=== PATIENT | male | born 1950 | race African-American/Black ===

== ENCOUNTER 2020-05-17 13:41 | Emergency (ER) | payer MEDICARE ==
[~2020-05-17] VITALS: Ht 188 cm; Wt 120.0 kg
[2020-05-17] MEDS ORDERED: ASPIRIN 325 MG TABLET PO ONE (14:15)
[2020-05-17 14:22] LABS: BASO % 1 % (0-3); EOS # 0.1 x10^3/uL (0.0-0.7); EOS % 3 % (0-3); HEMATOCRIT 38.3 % (39.0-53.0); HEMOGLOBIN 12.6 g/dL (13.0-17.5); LYMPH # 0.6 x10^3/uL (1.0-4.8); LYMPH % 21 % (24-48); MEAN CORPUSCULAR HEMOGLOBIN 27 pg (25-35); MEAN CORPUSCULAR HGB CONC 33 g/dL (31-37); MEAN CORPUSCULAR VOLUME 80 fL (79-100); MONO # 0.2 x10^3/uL (0.0-1.1); MONO % 8 % (0-9); NEUT % 67 % (31-73); PLATELET COUNT 217 x10^3/uL (140-400); RED BLOOD COUNT 4.76 x10^6/uL (4.30-5.70); RED CELL DISTRIBUTION WIDTH 14.9 % (11.5-14.5)
[2020-05-17 14:30] LABS: CALCIUM 8.7 mg/dL (8.5-10.1); CREATININE 1.6 mg/dL (0.7-1.3); GFR 43.1; POTASSIUM 3.4 mmol/L (3.5-5.1)
[2020-05-17 14:35] LABS: PROTHROMBIN TIME PATIENT 13.4 SEC (11.7-14.0)
[2020-05-17 14:37] LABS: ALBUMIN 3.2 g/dL (3.4-5.0); ALBUMIN/GLOBULIN RATIO 0.9 (1.0-1.7); MAGNESIUM 1.8 mg/dL (1.8-2.4); TOTAL BILIRUBIN 0.5 mg/dL (0.2-1.0); TOTAL PROTEIN 6.6 g/dL (6.4-8.2)
--- NOTE | 2020-05-17 14:41 | RAD ---
EXAM: Chest, single view. HISTORY: Chest pain. COMPARISON: None. FINDINGS: A frontal view of the chest is obtained. There is diffuse increased interstitial opacity. No consolidation, pleural effusion or pneumothorax is seen. There is a prominent cardiac silhouette, a component of which is likely accentuated due to portable technique. There are findings consistent with CABG. There is a suspected calcified granuloma within the right upper lobe. There is benign sclerosis within the right humeral head. IMPRESSION: Diffuse increased interstitial opacity without consolidation. Electronically signed by: Melissa Bonds MD (05/17/2020 2:38 PM) [facility]
--- NOTE | 2020-05-17 14:50 | RAD ---
EXAM: Head CT without contrast. HISTORY: Dizziness. TECHNIQUE: Computed tomographic images of the head were obtained without contrast. *One or more of the following individualized dose reduction techniques were utilized for this examination: 1. Automated exposure control. 2. Adjustment of the mA and/or kV according to patient size. 3. Use of iterative reconstruction technique. COMPARISON: None. FINDINGS: There is no acute or subacute extra-axial or intraparenchymal hemorrhage. There is no mass effect or midline shift. There is no hydrocephalus. There is decreased attenuation within the left frontal lobe likely due to encephalomalacia from chronic infarction. This is superimposed on extensive scattered areas of hypodensity within the cerebral white matter likely due to chronic small vessel disease. There is a suspected small arachnoid cyst within the midline posterior fossa. This is of no clinical significance. The visualized portions of the orbits, paranasal sinuses and mastoid air cells are unremarkable. No suspicious calvarial lesion is seen. IMPRESSION: 1. No acute intracranial finding. Note is made that MRI is more sensitive for acute infarction. 2. Evidence of malacia likely due to chronic infarction within the left frontal lobe. 3. Bilateral cerebral white changes, most commonly due to chronic small vessel disease in patients of this age. Electronically signed by: Melissa Bonds MD (05/17/2020 2:47 PM) [facility]
[2020-05-17 16:17] VITALS: BP 206/78
--- NOTE | 2020-05-17 16:20 | PHYS DOC ---
Past Medical History Past Medical History: Anxiety, CAD, CVA, High Cholesterol, Hypertension (DENIS HARVEY APRN) Past Surgical History: Coronary Bypass Surgery (DENIS HARVEY APRN) Smoking Status: Never Smoker Alcohol Use: None (DENIS HARVEY APRN) General Adult EDM: Chief Complaint: DIZZY/LIGHT HEADED HPI: HPI: Patient is a 69 year old AA male, accompanied by his , who presents to the emergency department with complaints of feeling lightheaded today. He denies any increase in symptoms with movement, ringing in his ears, or sensation of the room spinning. reports that the patient has had 2 CVAs this year and he has aphasia following his strokes. HPI is limited due to patient aphasia. The patient currently denies any pain (DENIS HARVEY APRN) Review of Systems: Review of Systems: Constitutional: Denies fever or chills. [] Eyes: Denies change in visual acuity. [] HENT: Denies nasal congestion or sore throat. [] Respiratory: Denies cough or shortness of breath. [] Cardiovascular: Denies chest pain GI: Denies abdominal pain, nausea, vomiting, or diarrhea. [] Musculoskeletal: Denies back pain or joint pain. [] Integument: Denies rash. [] Neurologic: Denies headache, see HPI Psychiatric: Denies depression or anxiety. [] (DENIS HARVEY APRN) Heart Score: Risk Factors: Risk Factors: DM, Current or recent (<one month) smoker, HTN, HLP, family history of CAD, obesity. Risk Scores: Score 0 - 3: 2.5% MACE over next 6 weeks - Discharge Home Score 4 - 6: 20.3% MACE over next 6 weeks - Admit for Clinical Observation Score 7 - 10: 72.7% MACE over next 6 weeks - Early Invasive Strategies (DENIS HARVEY APRN) Current Medications: Current Medications Medications (Trade) Dose Ordered Sig/Kathleen Start Time Stop Time Status Last Admin Dose Admin Aspirin (Aundrea Aspirin) 325 mg 1X ONCE 05/17/20 14:15 05/17/20 14:54 DC 05/17/20 15:22 325 MG (DENIS HARVEY ENGINEERING INTERN) Allergies: Allergies: Allergies Coded Allergies Type Severity Reaction Last Updated Verified No Known Drug Allergies 05/17/20 No (DENIS HARVEY APRN) Physical Exam: PE: Constitutional: Well developed, well nourished, no acute distress, non-toxic appearance. [] HENT: Normocephalic, atraumatic, bilateral external ears normal, oropharynx moist, no oral exudates, nose normal. [] Eyes: PERRLA, EOMI, conjunctiva normal, no discharge. [] Neck: Normal range of motion, no stridor. [] Cardiovascular:Heart rate regular rhythm Lungs & Thorax: Bilateral breath sounds clear to auscultation, Respirations even and unlabored, no retractions, no respiratory distress[] Abdomen: soft, no tenderness, no masses, no pulsatile masses. [] Skin: Warm, dry, no erythema, no rash. [] Back: No tenderness, no CVA tenderness. [] Extremities: No cyanosis, ROM intact, no edema. [] Neurologic: Alert and oriented X 3, normal motor function, strength 5/5 upper and lower extremities, normal sensory function, no focal deficits noted, aphasia present. [] Psychologic: Affect normal, judgement normal, mood normal. [] (DENIS HARVEY APRN) Current Patient Data: Labs: Laboratory Tests Test 05/17/20 14:11 White Blood Count 3.0 x10^3/uL (4.0-11.0) L Red Blood Count 4.76 x10^6/uL (4.30-5.70) Hemoglobin 12.6 g/dL (13.0-17.5) L Hematocrit 38.3 % (39.0-53.0) L Mean Corpuscular Volume 80 fL (79-100) Mean Corpuscular Hemoglobin 27 pg (25-35) Mean Corpuscular Hemoglobin Concent 33 g/dL (31-37) Red Cell Distribution Width 14.9 % (11.5-14.5) H Platelet Count 217 x10^3/uL (140-400) Neutrophils (%) (Auto) 67 % (31-73) Lymphocytes (%) (Auto) 21 % (24-48) L Monocytes (%) (Auto) 8 % (0-9) Eosinophils (%) (Auto) 3 % (0-3) Basophils (%) (Auto) 1 % (0-3) Neutrophils # (Auto) 2.0 x10^3/uL (1.8-7.7) Lymphocytes # (Auto) 0.6 x10^3/uL (1.0-4.8) L Monocytes # (Auto) 0.2 x10^3/uL (0.0-1.1) Eosinophils # (Auto) 0.1 x10^3/uL (0.0-0.7) Basophils # (Auto) 0.0 x10^3/uL (0.0-0.2) Prothrombin Time 13.4 SEC (11.7-14.0) Prothrombin Time INR 1.1 (0.8-1.1) Activated Partial Thromboplast Time 32 SEC (24-38) Sodium Level 145 mmol/L (136-145) Potassium Level 3.4 mmol/L (3.5-5.1) L Chloride Level 109 mmol/L (98-107) H Carbon Dioxide Level 25 mmol/L (21-32) Anion Gap 11 (6-14) Blood Urea Nitrogen 18 mg/dL (8-26) Creatinine 1.6 mg/dL (0.7-1.3) H Estimated GFR (Cockcroft-Gault) 43.1 BUN/Creatinine Ratio 11 (6-20) Glucose Level 183 mg/dL (70-99) H Calcium Level 8.7 mg/dL (8.5-10.1) Magnesium Level 1.8 mg/dL (1.8-2.4) Total Bilirubin 0.5 mg/dL (0.2-1.0) Aspartate Amino Transferase (AST) 18 U/L (15-37) Alanine Aminotransferase (ALT) 22 U/L (16-63) Alkaline Phosphatase 75 U/L (46-116) Creatine Kinase 465 U/L (39-308) H Creatine Kinase MB (Mass) 4.9 ng/mL (0.0-3.6) H Creatine Kinase MB Relative Index 1.1 % (0-4) Troponin I Quantitative 0.079 ng/mL (0.000-0.055) ZL-Qfk-S-Type Natriuretic Peptide 2032 pg/mL (0-124) H Total Protein 6.6 g/dL (6.4-8.2) Albumin 3.2 g/dL (3.4-5.0) L Albumin/Globulin Ratio 0.9 (1.0-1.7) L Lipase 108 U/L (73-393) Laboratory Tests 05/17/20 14:11 Laboratory Tests 05/17/20 14:11 Vital Signs: Vital Signs Date Time Temp Pulse Resp B/P (MAP) Pulse Ox O2 Delivery O2 Flow Rate FiO2 05/17/20 13:42 98.7 89 18 160/73 (102) 98 Room Air 98.7 (DENIS HARVEY APRN) EKG: EK-sinus rhythm, rate 86, no STEMI, read by Dr. Melton[] (DENIS HARVEY APRN) Radiology/Procedures: Radiology/Procedures: PROCEDURE: CT HEAD WO CONTRAST EXAM: Head CT without contrast. HISTORY: Dizziness. TECHNIQUE: Computed tomographic images of the head were obtained without contrast. *One or more of the following individualized dose reduction techniques were utilized for this examination: 1. Automated exposure control. 2. Adjustment of the mA and/or kV according to patient size. 3. Use of iterative reconstruction technique. COMPARISON: None. FINDINGS: There is no acute or subacute extra-axial or intraparenchymal hemorrhage. There is no mass effect or midline shift. There is no hydrocephalus. There is decreased attenuation within the left frontal lobe likely due to encephalomalacia from chronic infarction. This is superimposed on extensive scattered areas of hypodensity within the cerebral white matter likely due to chronic small vessel disease. There is a suspected small arachnoid cyst within the midline posterior fossa. This is of no clinical significance. The visualized portions of the orbits, paranasal sinuses and mastoid air cells are unremarkable. No suspicious calvarial lesion is seen. IMPRESSION: 1. No acute intracranial finding. Note is made that MRI is more sensitive for acute infarction. 2. Evidence of malacia likely due to chronic infarction within the left frontal lobe. 3. Bilateral cerebral white changes, most commonly due to chronic small vessel disease in patients of this age. Electronically signed by: Melissa Bonds MD (05/17/2020 2:47 PM) [facility][] PROCEDURE: CHEST AP ONLY EXAM: Chest, single view. HISTORY: Chest pain. COMPARISON: None. FINDINGS: A frontal view of the chest is obtained. There is diffuse increased interstitial opacity. No consolidation, pleural effusion or pneumothorax is seen. There is a prominent cardiac silhouette, a component of which is likely accentuated due to portable technique. There are findings consistent with CABG. There is a suspected calcified granuloma within the right upper lobe. There is benign sclerosis within the right humeral head. IMPRESSION: Diffuse increased interstitial opacity without consolidation. (DENIS HARVEY APRN) Course & Med Decision Making: Course & Med Decision Making Pertinent Labs and Imaging studies reviewed. (See chart for details) 69-year-old male who presented to the emergency department with complaints of feeling lightheaded. Work-up included labs, EKG, chest x-ray, and CT head. EKG revealed no acute findings. Chest x-ray revealed diffuse increased interstitial opacity without consolidation. CT head revealed: 1. No acute intracranial finding. Note is made that MRI is more sensitive for acute infarction. 2. Evidence of malacia likely due to chronic infarction within the left frontal lobe. 3. Bilateral cerebral white changes, most commonly due to chronic small vessel disease in patients of this age. CBC revealed a white blood cell count of 3, hemoglobin of 12.6, hematocrit of 38.3; PT/INR within normal limits; CMP revealed a potassium of 3.4, chloride of 109, creatinine 1.6, glucose of 183, CK of 465, CK-MB of 4.9, troponin is 0.079, and BNP of 2032. These results were discussed with the patient and admission to the hospital for elevated troponin and cardiac work-up was recommended. The patient and his refused admission. They were aware of the elevated troponin and the concern of this being related to the patient's heart. They were instructed to return to the hospital if symptoms worsened, chest pain developed, or the patient had difficulty breathing. [] (DENIS HARVEY APRN) Course & Med Decision Making I have personally interviewed and examined patient. All charts, labs and imagi ng studies were reviewed. I agreed with the PA/ORE CRUSHING DUST COLLECTOR's findings, exam and plan of care On my assessment patient is alert and has his baseline expressive aphasia. Patient is in no respiratory distress. I had a lengthy conversation with him about how I recommend admission to the hospital for further evaluation and treatment and serial enzymes. Patient has full mental capacity and does not want to be admitted. Patient wants to go back to [place]. I gave strong return precautions to him and his . (JESSICA MELTON MD) Dragon Disclaimer: Dragon Disclaimer: This electronic medical record was generated, in whole or in part, using a voice recognition dictation system. (DENIS HARVEY APRN) Departure Departure Impression: Primary Impression: Light-headed feeling Additional Impressions: Elevated troponin Left against medical advice Disposition: HOME, SELF-CARE Condition: STABLE Referrals: MELISSA THEODORE (PCP) Patient Instructions: Dizziness, [id number] Additional Instructions: Please return to the emergency room if your symptoms worsen, please follow-up with your primary care doctor in the next 1 to 2 days. Justicifation of Admission Dx: Justifications for Admission: Justification of Admission Dx: N/A (DENIS HARVEY APRN) DENIS HARVEY APRN May 17, 2020 16:20 JESSICA MELTON MD May 17, 2020 17:10
--- NOTE | 2020-05-18 07:45 | EKG ---
[facility] [address] [place] [address] Test Date: 2020-05-17 Test Time: 13:47:54 Pat Name: KASIA WRIGHT Department: Room: Gender: M Train Electronic Technician: : 1950 Requested By: DENIS HARVEY Order Number: [id number] Reading MD: Measurements Intervals [place] Rate: 86 P: 183 WY: 154 QRS: 208 QRSD: 98 T: 60 QT: 386 QTc: 465 Interpretive Statements SINUS RHYTHM ABNORMAL RIGHT SUPERIOR AXIS DEVIATION QRS(T) CONTOUR ABNORMALITY CONSISTENT WITH HIGH LATERAL INFARCT AGE UNDETERMINED CONSIDER INFERIOR INFARCT ABNORMAL ECG RI6.02 No previous ECG available for comparison
== END 2020-05-17 16:28 | disposition home or self-care (01) ==
LOC: ER 13:41
DX: R42 Dizziness and giddiness (principal); R79.89 Other specified abnormal findings of blood chemistry; R20.0 Anesthesia of skin; F41.9 Anxiety disorder, unspecified; E78.00 Pure hypercholesterolemia, unspecified; I11.9 Hypertensive heart disease without heart failure; Z86.73 Personal history of transient ischemic attack (TIA), and cerebral infarction without residual deficits; Z98.890 Other specified postprocedural states
CPT/HCPCS: 36415; 70450; 71045; 80053; 82553; 83690; 83735; 83880; 84484; 85025; 85610; 85730; 93005; 99285